=== PATIENT | male | born 1945 | race Caucasian/White ===

== ENCOUNTER 2022-03-18 10:51 | Outpatient (CLI) | payer MEDICARE ==
[2022-03-18 12:23] LABS: Hemoglobin 15.3 g/dL (13.5-17.5); Mean Corpuscular HGB CONC 33.9 g/dL (32.0-36.0); Mean Corpuscular Volume 97.4 fl (81.2-95.1); Mean Platelet Volume 9.6 fl (7.4-10.4); Platelet Count 144 10x3/uL (150-450); RBC Distribution Width 12.6 % (11.5-14.5); Red Blood Cell (RBC) Count 4.63 10x6/uL (4.32-5.72); White Blood Cell (WBC) Count 5.3 10x3/uL (3.5-10.5)
[2022-03-18 12:30] LABS: INR-International Normal Ratio 1.1; PTT 25.9 sec (22.0-33.0); Prothrombin Time 11.4 sec (9.5-12.1)
[2022-03-18 12:39] LABS: Anion Gap 11 mmol/L (10-20); BUN (Urea Nitrogen) 19 mg/dL (8.4-25.7); Calc. Creatinine Clearance 0 mL/min (70-130); Calcium 9.4 mg/dL (7.8-10.44); Carbon Dioxide 27 mmol/L (23-31); Chloride 106 mmol/L (98-107); Glucose 95 mg/dL (83-110); Potassium 4.9 mmol/L (3.5-5.1); Sodium 139 mmol/L (136-145)
== END 2022-03-18 10:52 | disposition home or self-care (01) ==
LOC: LABBT 10:51
PROVIDERS: ATTEND Internal Medicine Cardiovascular Disease
DX: Z01.812 Encounter for preprocedural laboratory examination (principal); R55 Syncope and collapse; Z20.822 Contact with and (suspected) exposure to COVID-19
CPT/HCPCS: 80048; 85027; 85610; 85730; U0003; U0005

== ENCOUNTER 2022-03-19 07:08 | Day surgery (SDC) | payer MEDICARE ==
[2022-03-16 11:34] VITALS: BMI 30.7
[2022-03-19] MEDS ORDERED: Isoproterenol 0.2 MG/1 ML AMP ONE (07:17)
[2022-03-19] MEDS ORDERED: Lidocaine 1% (PF) 30 ML VIAL ONE ×2 (07:17→10:53)
[2022-03-19] MEDS ORDERED: Lidocaine 2% 6 ML SYR ONE (09:27)
[2022-03-19] MEDS ORDERED: fentaNYL Citrate/PF 100 MCG/2 ML SYRINGE ONE (09:27)
[2022-03-19] MEDS ORDERED: Propofol 500 MG/50 ML VIAL ONE (09:30)
[2022-03-19] MEDS ORDERED: PHENYLEPHRINE-NS 100 MCG/ML 10 ML SYRINGE ONE (09:32)
[2022-03-19] MEDS ORDERED: PROPOFOL 200 MG/20 ML VIAL ONE (09:32)
[2022-03-19] MEDS ORDERED: Midazolam HCl 2 mg/2 ml Vial ONE (09:33)
[2022-03-19] MEDS ORDERED: PROPOFOL 20 ML ONE (11:00)
== END 2022-03-19 14:40 | disposition home or self-care (01) ==
LOC: SDC 07:08
PROVIDERS: ATTEND Internal Medicine Cardiovascular Disease
PROC: 4A023FZ Measurement of Cardiac Rhythm, Percutaneous Approach (ICD-10-PCS; principal; 2022-03-19)
PROC: 4A0234Z Measurement of Cardiac Electrical Activity, Percutaneous Approach (ICD-10-PCS; 2022-03-19)
PROC: 0JH632Z Insertion of Monitoring Device into Chest Subcutaneous Tissue and Fascia, Percutaneous Approach (ICD-10-PCS; 2022-03-19)
DX: I44.7 Left bundle-branch block, unspecified (principal); I47.1 Supraventricular tachycardia; I47.2 Ventricular tachycardia; R55 Syncope and collapse; G47.33 Obstructive sleep apnea (adult) (pediatric); I25.10 Atherosclerotic heart disease of native coronary artery without angina pectoris; E78.5 Hyperlipidemia, unspecified; Z79.1 Long term (current) use of non-steroidal anti-inflammatories (NSAID); Z79.82 Long term (current) use of aspirin; Z79.899 Other long term (current) drug therapy
CPT/HCPCS: 33285; 93621; 93623; C1730 ×2; C1760; C1764; 93613; 93620; J2001; J2250; J2704